=== PATIENT | male | born 1955 | race Caucasian/White ===

== ENCOUNTER → 2016-09-17 | Outpatient (CLI) | payer BC ==
--- NOTE | 2016-09-17 12:29 | RADRPT ---
PROCEDURE: XR right knee. CLINICAL INDICATION: Knee pain. TECHNIQUE: AP weightbearing, lateral weightbearing and sunrise views are available for review. COMPARISON: 02/24/2016 FINDINGS: There is a total knee replacement. There is no evidence of loosening of the prosthesis. There is no evidence of hardware failure. The osseous structures are normal in mineralization, architecture and alignment No acute fracture or dislocation is seen.No osseous lesions are identified. The soft tiss ues are unremarkable . there is a small suprapatellar joint effusion IMPRESSION: Unremarkable total knee replacement. Small suprapatellar joint effusion RPTAT: [facility] .Melquiades Morris MD, MD Date Time Electronically viewed and signed by .Melquiades Morris MD, on 09/17/2016 12:28 .B/
== END | disposition home or self-care (01) ==
LOC: HKI 09:13
PROVIDERS: ATTEND Orthopaedic Surgery
DX: T84.84XA Pain due to internal orthopedic prosthetic devices, implants and grafts, initial encounter (principal); Y83.8 Other surgical procedures as the cause of abnormal reaction of the patient, or of later complication, without mention of misadventure at the time of the procedure; M25.561 Pain in right knee; Z96.651 Presence of right artificial knee joint
CPT/HCPCS: G0463

== ENCOUNTER → 2016-10-15 | Outpatient (CLI) | payer BC | END | disposition home or self-care (01) | LOC: HKI 09:37 | PROVIDERS: ATTEND Orthopaedic Surgery | DX: M25.561 Pain in right knee (principal); M25.461 Effusion, right knee; T84.84XA Pain due to internal orthopedic prosthetic devices, implants and grafts, initial encounter; Z96.651 Presence of right artificial knee joint | CPT/HCPCS: 20610; G0463 ==